=== PATIENT | female | born 1995 | race Caucasian/White ===

== ENCOUNTER 2017-01-16 20:11 | Emergency (ER) | payer MEDICAID, OTHER ==
[2017-01-16] MEDS ORDERED: LIDOCAINE HCL/EPINEPHRINE 30 ML VIAL IJ ONE (20:36)
--- OUTSIDE RECORDS SUMMARY | 2017-01-16 20:43 | XMS REPORT | Continuity of Care Document ---
:1995 Author Organization [facility] ([facility]) Address [address] [place] [address] Phone [phone] Care Team Providers Name Role Phone Provider, No-Primary Care Primary Care Provider Unavailable Source Comments This disclosure is being made pursuant to the Care Everywhere program, applicable federal and state laws, and may not contain all informaitonavailable regarding this patient.[facility] ([facility]) Active Allergies and Adverse Reactions Allergen Noted Date Severity Reactions Comments Oseltamivir Phosphate 07/18/2011 Nausea & Vomiting Current Medications Prescription Sig. Disp. Refills Start Date End Date Status NAPROXEN (NAPROSYN PO) Take 500 mg by mouth Active daily as needed. Indications: Pain chlorzoxazone 500 mg Take 500 mg by mouth Active tablet daily. Indications: Muscle Spasm FLUoxetine 10 mg Take 1 Cap by mouth 15 Cap 0 07/26/2011 Active capsule daily. Indications: Depression Active Problems Not on file Social History Tobacco Use Types Packs/Day Years Used Date Current Some Day Smoker Last Filed Vital Signs Vital Sign Reading Time Taken Blood Pressure 125/65 07/26/2011 11:43 AM CDT Pulse 75 07/18/2011 10:30 PM CDT Temperature 36.5 C (97.7 F) 07/18/2011 10:30 PM CDT Respiratory Rate 16 07/18/2011 10:30 PM CDT Height 1.668 m (5' 5.68") 07/26/2011 11:43 AM CDT Weight 80.7 kg (177 lb 14.6 oz) 07/26/2011 11:43 AM CDT Body Mass Index 29.01 07/26/2011 11:43 AM CDT Oxygen Saturation 100% 07/18/2011 10:30 PM CDT Plan of Care Health Maintenance Due Date Last Done Comments Hepatitis B Vaccine (1 of 3 - Primary Series) 1996 HPV Vaccine (1 of 3 - Female/Unknown 3 Dose Series) 2007 Tdap Vaccine 2007 Meningococcal Vaccine (1 of 1) 2012 Lipid Disorder Screening 2014 MMR Vaccine 2014 Td Vaccine 2014 Varicella Vaccine (1 of 2 - Adult - No Evidence of 2014 Immunity) Pneumococcal Vaccine (1 of 1 - PPSV23) 2015 Influenza Vaccine: Seasonal (#1) 06/19/2016 Results from Last 3 Months Not on file
--- NOTE | 2017-01-16 20:53 | ERNOTE ---
Integumentary HPI - Narrative Date of Service: 01/16/17 - General Presenting Symptoms: abscess Time Seen by Provider: 01/16/17 20:27 Source: patient Exam Limitations: no limitations - Immun/Allergies/Home Medications Immunizations: IMMUNIZATION HX Immunizations Up to Date Yes History of Influenza Vaccine Yes Hx Pneumococcal Vaccination No Allergies/Adverse Reactions: Allergies Allergy/AdvReac Type Severity Reaction Status Date / Time oseltamivir phosphate AdvReac Verified 01/16/17 20:21 [From Tamiflu] Home Medications: HOME MEDICATIONS Clonazepam 0.5 mg PO TID PRN 01/16/17 [Last Taken Unknown] Sertraline HCl [Zoloft] 40 mg PO DAILY 01/16/17 [Last Taken Unknown] Sulfamethoxazole/Trimethoprim [Bactrim Ds] 1 tab PO BID 01/16/17 [Last Taken Unknown] - History of Present Illness Narrative: 21 y/o female presented to ED with c/o of abscess to abdomen and bottom that are not healing. Location: Reports: torso Quality: Reports: painful Severity: moderate Exposure: Reports: no cause identified Associated Symptoms: Reports: denies symptoms Prior Treatment: Reports: recently seen - at [facility] put on PO bactrim for infections. Review of Systems - Review of Systems Constitutional: Present: no symptoms reported EYE: Present: no symptoms reported ENT: Present: no symptoms reported Respiratory: Present: no symptoms reported Cardiology: Present: no symptoms reported Gastrointestinal/Abdominal: Present: no symptoms reported Genitourinary: Present: no symptoms reported Musculoskeletal: Present: no symptoms reported Skin: Present: See HPI, lesions Neurological: Present: no symptoms reported Endocrine: Present: no symptoms reported Hematologic/Lymphatic: Present: no symptoms reported Psych: Present: no symptoms reported All Other Systems: All systems neg except as marked - Patient's Past Medical History Patient History - Medical: Anxiety, GERD, Kidney stone Patient History - Cardiac/Respiratory: Hypertension Patient History - Cancer: No Hx of Cancer Patient History - Surgical Procedures: T & A Patient History - Other: None - Social History Living Situations: home Smoking Status: Current every day smoker - Immunizations Immunizations Up to Date: Yes Hx Pneumococcal Vaccination: No History of Influenza Vaccine: Yes Physical Exam - Physical Exam General Appearance: Present: wd/wn Eye Exam: Normal inspection: bilateral Ears, Nose, Throat: Present: normal ENT inspection Neck: Present: normal inspection Respiratory: Present: no respiratory distress Cardiovascular/Chest: Present: regular rate, rhythm Peripheral Pulses: N=norm/S=strong/W=weak/B=bound/A=absent: Radial (R): Normal, Radial (L): Normal, Dorsalis-pedis (R): Normal, Dorsalis-pedis (L): Normal Gastrointestinal/Abdominal: Present: normal bowel sounds Back Exam: Present: normal inspection Extremity Exam: Present: normal inspection Neurological Exam: Present: alert Skin Exam: Present: other - LLQ abscess measuring 4cm, a small open area on each end of the site, draining sero sang fluid. and 2 0.5x0.5 abscess located on her right medial and lateral buttock Lymphatic Exam: Present: no adenopathy ED Progress - Vital Signs Patient's Vital Signs:: I have reviewed the patient's vital signs. Vital Signs: Vital Signs 01/16/17 20:14 Temperature 36.5 C Pulse Rate 88 Respiratory 18 Rate Blood Pressure 116/62 O2 Sat by Pulse 100 Oximetry - Progress/Reassessment Chief Complaint: Abscess Progress:: Improved Procedures Left Lower Abdomen Anesthesia: Lidocaine w/ Epi I & D Prep: betadine prep, sterile drapes applied Wound's Depth/Shape: into subcutaneous Wound Explored: clean Wound Intervention: irrigated w/saline Wound Dressing: sterile dressing applied Complications: Pt rosemarie procedure well Comment: 0.5cm incision made in to center abscess of LLQ wound. small amount of purulent drainage expressed. Patient had 2 open weeping abscess on either side of incision. Departure Clinical Impression: Abscess of skin or subcutaneous tissue Qualifiers: Site of cutaneous abscess: trunk Site of cutaneous abscess of trunk: abdominal wall Qualified Code(s): L02.211 - Cutaneous abscess of abdominal wall - Departure Disposition: Home Follow Up Needed Condition: Stable Instructions: Abscess, [id number], Incision and Drainage, Care After Additional Instructions: Continue to take you oral medications as prescribed. Call your doctors office to schedule a follow up apt. Change dressings daily as directed. Referrals: Maribel Mccullough ARNP [Primary Care Provider] -
[2017-01-16 22:11] VITALS: BP 120/67
== END 2017-01-16 21:56 | disposition home or self-care (01) ==
LOC: ER 20:11
PROC: 0J980ZZ Drainage of Abdomen Subcutaneous Tissue and Fascia, Open Approach (ICD-10-PCS; principal; 2017-01-16)
DX: L02.211 Cutaneous abscess of abdominal wall (principal); F17.210 Nicotine dependence, cigarettes, uncomplicated; Z87.442 Personal history of urinary calculi; F41.9 Anxiety disorder, unspecified

== ENCOUNTER 2017-10-06 10:19 | Emergency (ER) | payer OTHER ==
[2017-10-06] MEDS ORDERED: PROMETHAZINE HCL 25 MG/ML AMPUL IM ONE (10:47)
[2017-10-06] MEDS ORDERED: PROMETHAZINE HCL 25 MG/ML AMPUL ONE (10:50)
[2017-10-06 11:05] LABS: Hematocrit 42.4 % (37.0-47.0); Mean Cell Volume 89.1 fl (78-100); Mean Corpuscular Hemoglobin 31.5 pg (27-31); Mean Corpuscular Hgb Conc 35.4 g/dl (32-36); Mean Platelet Volume 9.4 fl (6.0-9.5); Neutrophil # 5.9 K/mm3 (1.3-6.0); Neutrophil % 60.8 % (42-75.0); Platelet Count 246 K/mm3 (150-450); Red Blood Count 4.76 M/mm3 (4.2-5.4); Red Cell Distribution Width 12.1 % (11.5-14.0); White Blood Count 9.7 K/mm3 (4.0-10.5)
[2017-10-06 11:07] LABS: Urine Bilirubin 1 mg/dl (NEGATIVE); Urine Blood 50 /ul (NEGATIVE); Urine Ketone Negative (NEGATIVE); Urine Nitrite Negative (NEGATIVE); Urine Protein 30 mg/dL (NEGATIVE); Urine Urobilinogen Normal (NORMAL)
[2017-10-06 11:17] LABS: Albumin * 4.2 gm/dl (3.4-5.0); Anion Gap 13.3 mmol/L (6.8-13.8); BUN/Creatinine Ratio 16.7 (9.0-21.6); Bilirubin, Total 0.9 mg/dL (0.0-1.1); Ca. Corrected For Albumin 8.9 mg/dL (8.4-10.2); Calcium * 9.4 mg/dL (7.9-10.9); Carbon Dioxide 28.6 mmol/L (24-32.6); Potassium 3.9 mmol/L (3.4-4.6); Total Protein 7.9 gm/dL (6.2-8.2)
[2017-10-06 11:18] LABS: Urine Appearance Slightly Cloudy; Urine Bacteria 1+; Urine Color Dark Yellow
[2017-10-06] MEDS ORDERED: NORMAL SALINE 1,000 ML IV ONE (11:34)
--- NOTE | 2017-10-06 11:47 | ERNOTE ---
Medical Problem HPI - Narrative Date of Service: 10/06/17 - General Chief Complaint: General Assessment Time Seen by Provider: 10/06/17 10:36 Source: patient Exam Limitations: no limitations - Immun/Allergies/Home Medications Immunizations: IMMUNIZATION HX Immunizations Up to Date Yes History of Influenza Vaccine No Hx Pneumococcal Vaccination No Allergies/Adverse Reactions: Allergies oseltamivir phosphate [From Tamiflu] Adverse Reaction (Verified 10/06/17 10:30) Home Medications: HOME MEDICATIONS Albuterol Sulfate [Proair Hfa] 2 puff IH Q4H PRN #1 inhaler 10/06/17 [Last Taken Unknown] Amox Tr/Potassium Clavulanate [Augmentin 875-125 Tablet] 875 mg PO Q12H #20 tab 10/06/17 [Last Taken Unknown] Ondansetron [Zofran Odt] 4 mg PO Q8H PRN #8 tab 10/06/17 [Last Taken Unknown] - History of Present History Narrative: Patient presents to the ED for multiple complaints. She relates she has been vomiting off and on for a week or so. She also had diarrhea for a couple of days that stopped 2 days ago. Has felt feverish but not taken her temperature. She has been coughing for 3 weeks and her chest hurts with the cough. He abdomen has been hurting off and on and she was seen at [place], thought she may have a GB problems but she could not follow-up due to insurance issues. She also states sinus pressure and congestion for 3 weeks. No DVT sx. Timing: other - fluctuating intensity Severity: moderate Modifying Factors - (Improves): Present: other - nothign Modifying Factors - (Worsens): Present: other - nothing Review of Systems - Review of Systems Constitutional: Present: other - has felt feverish EYE: Absent: eye discharge ENT: Present: nose congestion. Absent: sore throat Respiratory: Present: cough Cardiology: Absent: syncope Gastrointestinal/Abdominal: Present: vomiting, diarrhea Genitourinary: Present: dysuria Musculoskeletal: Absent: back pain Skin: Absent: rash Neurological: Absent: weakness - Patient's Past Medical History Patient History - Medical: Anxiety, GERD, Kidney stone Patient History - Cardiac/Respiratory: Hypertension Patient History - Cancer: No Hx of Cancer Patient History - Surgical Procedures: T & A, Orthopedic Patient History - Other: None LMP (females 10-50): 1 month - Family History Mother Family History - Medical: No pertinent hx Father Family History - Medical: No pertinent hx - Social History Living Situations: home Abuse History: No History of abuse Psych History: Hx of Anxiety Smoking Status: Current every day smoker - Immunizations Immunizations Up to Date: Yes Hx Pneumococcal Vaccination: No History of Influenza Vaccine: No Physical Exam - Physical Exam General Appearance: Present: alert, no apparent distress, other - stable, non- toxic, well hydrated. No distress. Frequent cough, no respiratory distress/ Head Exam: Present: normal inspection, no evidence of injury Eye Exam: Normal inspection: bilateral, PERRL: bilateral Ears, Nose, Throat: Present: normal ENT inspection, other - nasal congestion and sinus congestion. No evidence of LIBRARY PAGE, RPA or epiglottitis. Neck: Present: normal inspection, nontender, supple Respiratory: Present: no respiratory distress, normal breath sounds, no accessory muscle use, lungs clear, chest tenderness Cardiovascular/Chest: Present: regular rate, rhythm, normal peripheral pulses Gastrointestinal/Abdominal: Present: normal bowel sounds, nontender, nondistended, soft, other - I am unable to elicit any tendenress in the abdomen at this time. Absent: tenderness Back Exam: Present: normal inspection, normal range of motion. Absent: CVA tenderness (R), CVA tenderness (L) Extremity Exam: Present: normal inspection, non-tender, no edema Neurological Exam: Present: alert, normal mood/affect, no motor/sensory deficits Skin Exam: Present: normal color, warm/dry. Absent: skin rash ED Progress - Results and Orders Patient's Lab Results:: I have reviewed the patient's lab results. - Vital Signs Patient's Vital Signs:: I have reviewed the patient's vital signs. Vital Signs: Vital Signs 10/06/17 10/06/17 10/06/17 10:25 10:38 10:58 Temperature 37.1 C Pulse Rate 108 H 101 H 85 Respiratory 15 Rate Blood Pressure 123/73 123/73 113/72 O2 Sat by Pulse 97 95 97 Oximetry 10/06/17 11:32 Temperature Pulse Rate 67 Respiratory Rate Blood Pressure 114/75 O2 Sat by Pulse 97 Oximetry - Progress/Reassessment Chief Complaint: General Assessment Progress Note-Subjective: 10/06/17 11:41 She does have a UTI, clinically nothing to suggest pyelo, kidney stone, sepsis or toxicity. She wishes to go home and I feel she is appropriate for initial outpatient management given her desire to go home. IV ABx given. Augmentin for UTI, sinusitis. I disucssed warning signs and reasons to return as well as the need for close f/u. Departure Clinical Impression: UTI (urinary tract infection), Sinusitis - Departure Disposition: Home self-care Condition: Stable Instructions: Urinary Tract Infection, Adult, [id number] Additional Instructions: Rest. Fluids. Take antibiotics as directed. Follow-up Sunday with your primary doctor for a re-check. Nausea medications. inhaler for cough. Return for trouble breathing, fever, vomiting or if your condition worsens or changes in any way. Prescriptions: Albuterol Sulfate [Proair Hfa] 2 puff IH Q4H PRN #1 inhaler PRN Reason: Cough Amox Tr/Potassium Clavulanate [Augmentin 875-125 Tablet] 875 mg PO Q12H #20 tab Ondansetron [Zofran Odt] 4 mg PO Q8H PRN #8 tab PRN Reason: Nausea
[2017-10-06 12:39] VITALS: BP 112/73
== END 2017-10-06 13:00 | disposition home or self-care (01) ==
LOC: ER 10:19
DX: N39.0 Urinary tract infection, site not specified (principal); J32.9 Chronic sinusitis, unspecified